=== PATIENT | male | born 1995 | race Hispanic/Latino ===

== ENCOUNTER 2018-04-27 07:10 | Emergency (ER) | payer SELFPAY ==
[2018-04-27] MEDS ORDERED: LIDOCAINE HCL 2% VISCOUS 15 ML UDCUP ONE (07:38)
[2018-04-27] MEDS ORDERED: MAGNESIUM HYDROXIDE 30 ML/UDCUP ONE (07:38)
[2018-04-27] MEDS ORDERED: FAMOTIDINE 20MG TAB 20 MG TAB ONE (07:39)
[2018-04-27] MEDS ORDERED: ONDANSETRON ODT 4 MG TAB ONE (07:40)
== END 2018-04-27 09:01 | disposition home or self-care (01) ==
LOC: EDH 07:10
DX: K29.70 Gastritis, unspecified, without bleeding (principal); R10.13 Epigastric pain; K21.9 Gastro-esophageal reflux disease without esophagitis